=== PATIENT | male | born 1930 | race Caucasian/White ===

== ENCOUNTER 2016-12-06 06:46 | Day surgery (SDC) | payer MEDICARE, OTHER ==
[2016-11-24 16:17] LABS: BASOPHILS 0.3 %; BASOPHILS ABSOLUTE 0.03 10/3/uL (0.0-0.16); EOSINOPHILS 9.2 %; EOSINOPHILS ABSOLUTE 0.81 10/3/uL (0.0-0.53); HEMATOCRIT 40.3 % (40.0-51.0); HEMOGLOBIN 13.3 g/dL (13.6-17.8); IMMATURE GRANULOCYTES 0.2 %; IMMATURE GRANULOCYTES ABSOLUTE 0.02 10/3/uL (0.0-0.11); LYMPHOCYTES 21.8 %; LYMPHOCYTES ABSOLUTE 1.92 10/3/uL (0.67-4.30); MEAN CORPUSCULAR HEMOGLOB 29.8 pg (26.0-34.0); MEAN PLATELET VOLUME 9.6 fL (9.2-13.0); MONOCYTES 10.2 %; NEUTROPHILS 58.3 %; NEUTROPHILS ABSOLUTE 5.11 10/3/uL (2.02-8.40); PLATELET COUNT 221 10/3/uL (150-400); RBC DISTRIBUTION WIDTH 13.5 % (12.0-16.0); RED CELL COUNT 4.46 10/6/uL (4.7-6.1); WHITE BLOOD CELLS 8.8 10/3/uL (4.5-10.5)
[2016-11-24 16:19] LABS: MANUAL DIFF NO %; MEAN CORPUSCULAR VOLUME 90.4 fL (80-100)
[2016-11-24 16:32] LABS: CALCIUM, SERUM 8.9 MG/DL (8.5-10.4); CHLORIDE, SERUM 99 MMOL/L (96-112); CO2 (CARBON DIOXIDE) 31 MMOL/L (24-34); CREATININE 0.92 MG/DL (0.70-1.30); GFR AFRICAN AMERICAN 88 ML/MIN (>=60); GFR NON AFRICAN AMERICAN 76 ML/MIN (>=60); GLUCOSE, SERUM 81 MG/DL (60-99); POTASSIUM, SERUM 4.5 MMOL/L (3.5-5.3); SODIUM, SERUM 138 MMOL/L (135-148)
[2016-11-24 16:34] LABS: BUN (BLOOD UREA NITROGEN) 20 MG/DL (6-23)
--- NOTE | ~2016-12-06 | OP ---
Record Of Operation [facility] [address] [place]. [address] NAME: ABRAHAN DOWD : 34 STATUS : [facility]#: [id number] AGE: 86 ADM/REG DATE : 12/06/16 MR#: [id number] REPORT SERV DATE: 12/08/16 DICTATED BY: ASHER MEJIA DATE: 12/08/16 REPORT STATUS : Draft TRANSCRIBED BY: MODL DATE: 12/08/16 DATE OF PROCEDURE: 12/06/2016 ATTENDING: Dr. Mejia. RESIDENT: Dr. Rodrigo Orourke. PREOPERATIVE DIAGNOSIS: Bilateral inguinal hernias. POSTOPERATIVE DIAGNOSIS: Bilateral reducible direct inguinal hernias. OPERATION: Open repair of bilateral reducible direct inguinal hernias with mesh. ESTIMATED BLOOD LOSS: 10 mL. SPECIMEN: None. ANESTHESIA: General and local. BRIEF HISTORY: An 86-year-old male with bilateral inguinal hernias. After risks and benefits of the open procedure were discussed in detail with the patient secondary to his history of prostatectomy, he agreed to proceed with surgery and on the day of surgery, consent was signed. Correct site of surgery was then marked. He was then brought to the operating room and placed in the supine position. DESCRIPTION OF PROCEDURE: After induction of general anesthesia, the patient's abdomen and groin were prepped and draped in a standard fashion using Hibiclens and ChloraPrep. It was started on the right, made an incision between the ASIS and the pubic tubercle, approximately 6 cm long and carried this down through the Earle's fascia to the external oblique aponeurosis with electrocautery. We then incised the external oblique aponeurosis and opened in the direction of its fibers through the external inguinal ring. We elevated external oblique flaps and dissected the cord structures off the flaps and circumferentially at the pubic tubercle. We then placed a [place] drain around the spermatic cord. There was an obvious transversalis defect with a direct hernia sac that adhered to the spermatic cord and we dissected this off with a mix of blunt dissection and electrocautery. We inspected the cord contents. We somewhat opened the cremasteric fibers and did not see an indirect hernia sac. At this point, we selected an inguinal hernia repair system. We trimmed the inner alutiiq down slightly and placed this into the internal ring in the preperitoneal space after reducing the direct hernia sac. We then trimmed the superior portion of the mesh to fit the patient's inguinal canal. We sutured it at the pubic tubercle near the lacunar ligament with a 0 Nurolon suture and inferiorly along the folded edge of the inguinal ligament with interrupted 0 Nurolon sutures and superiorly along the conjoined tendon with 0 interrupted Nurolon sutures. We cut a notch in the mesh and attached this around the cord proximally to recreate the internal inguinal ring. Next we irrigated the wound. We then closed the external oblique aponeurosis to recreate the external inguinal ring with a running 2-0 Vicryl suture. We then irrigated and closed the Earle's fascia and then the Record Of Operation [address] [place]. [address] NAME: ABRAHAN DOWD : 34 STATUS : [facility] PAT#: [id number] AGE: 86 ADM/REG DATE : 12/06/16 MR#: [id number] REPORT SERV DATE: 12/08/16 DICTATED BY: ASHER MEJIA DATE: 12/08/16 REPORT STATUS : Draft TRANSCRIBED BY: KIRSTEN DATE: 12/08/16 skin with 3-0 Vicryl sutures and a running 4-0 Monocryl suture. The findings on the left side were the same. We performed this same exposure and repair of the left side as we did on the right side. Both sides went well. There was minimal blood loss. The testicles were pulled down to the inferior scrotum and covered the incisions with Telfa and Tegaderm. The patient tolerated the procedure well, was extubated and brought to the PACU in stable condition and discharged home. SKY/KIRSTEN Asher Mejia M.D. / [id number] CC: Asher Mejia M.D.
[~2016-12-06 06:46] MED LIST: ADVAIR250 INH; ALLEGRA PO; ALLEGRA180 PO; ALLERGY INJ SQ; BETAPACE80 PO; C25 PO; C5 PO; CENTRUM PO; CO Q-10100 MG PO; CO Q-10200 MG PO; CRESTOR20 MG PO; FLOMAX4 PO; FLONASE NAS; HALF81 PO; HYDROCHLOROT12.5 MG PO; KLONO1 PO; LISINOPRIL40 MG PO; NASONEX NAS; PRIN20 PO; RYTHMOL150 MG PO; SINGULAIR1 PO; TOPXL100 PO; TYLENOL PM PO; VICODIN PO; XYZAL5 MG PO; ZYRTEC ALLGY10 MG PO
[2016-12-06 07:14] LABS: INTERNATIONAL NORMAL RATI 1.4 UNITS (-); PROTIME (NOT ORD) 16.8 SEC (12.0-14.5)
== END 2016-12-06 16:41 | disposition home or self-care (01) ==
LOC: SDC 06:46
PROVIDERS: Specialist
PROC: 0YUA0JZ Supplement Bilateral Inguinal Region with Synthetic Substitute, Open Approach (ICD-10-PCS; principal; 2016-12-06 08:45)
DX: K40.20 Bilateral inguinal hernia, without obstruction or gangrene, not specified as recurrent (principal); I10 Essential (primary) hypertension; J44.9 Chronic obstructive pulmonary disease, unspecified; Z88.1 Allergy status to other antibiotic agents; N40.0 Benign prostatic hyperplasia without lower urinary tract symptoms; I48.91 Unspecified atrial fibrillation; Z79.01 Long term (current) use of anticoagulants; Z79.82 Long term (current) use of aspirin; Z79.51 Long term (current) use of inhaled steroids; Z95.0 Presence of cardiac pacemaker; Z79.899 Other long term (current) drug therapy; Z98.890 Other specified postprocedural states
CPT/HCPCS: 80048; 85025; 85610; 93005; A9270-GY; C1781; J0690; J2250; J2370; J2405; J2710; J3010

== ENCOUNTER 2016-12-10 19:09 | Emergency (ER) | payer MEDICARE, OTHER ==
[2016-12-10 20:49] LABS: WBC (NOT ORDERED) (RFLEX) 0 (0-5)
[2016-12-10 20:54] LABS: ASCORBIC ACID (UR NOT ORDER) NEG (NEG); BILIRUBIN, URINE NEGATIVE (NEG); KETONE, URINE NEGATIVE (NEG); LEUKOCYTE ESTERASE(NOT OR NEG (NEG); NITRITE (URINE) NEG (NEG)
[2016-12-10 22:24] LABS: BASOPHILS 0.1 %; BASOPHILS ABSOLUTE 0.01 10/3/uL (0.0-0.16); EOSINOPHILS 12.3 %; EOSINOPHILS ABSOLUTE 1.13 10/3/uL (0.0-0.53); ER CBC TAT 0 Hrs 05 Mins; HEMATOCRIT 36.4 % (40.0-51.0); HEMOGLOBIN 12.1 g/dL (13.6-17.8); IMMATURE GRANULOCYTES ABSOLUTE 0.09 10/3/uL (0.0-0.11); LYMPHOCYTES 23.8 %; LYMPHOCYTES ABSOLUTE 2.18 10/3/uL (0.67-4.30); MANUAL DIFF NO %; MEAN CORPUS HGB CONC 33.2 g/dL (32.0-36.0); MEAN CORPUSCULAR HEMOGLOB 30.3 pg (26.0-34.0); MEAN CORPUSCULAR VOLUME 91.2 fL (80-100); MEAN PLATELET VOLUME 9.1 fL (9.2-13.0); MONOCYTES 8.3 %; MONOCYTES ABSOLUTE 0.76 10/3/uL (0.21-1.20); NEUTROPHILS 54.5 %; PLATELET COUNT 202 10/3/uL (150-400); RBC DISTRIBUTION WIDTH 13.2 % (12.0-16.0); RED CELL COUNT 3.99 10/6/uL (4.7-6.1); WHITE BLOOD CELLS 9.2 10/3/uL (4.5-10.5)
[2016-12-10 22:36] LABS: BUN (BLOOD UREA NITROGEN) 21 MG/DL (6-23); CALCIUM, SERUM 9.3 MG/DL (8.5-10.4); CHLORIDE, SERUM 98 MMOL/L (96-112); CO2 (CARBON DIOXIDE) 30 MMOL/L (24-34); CREATININE 0.91 MG/DL (0.70-1.30); GFR AFRICAN AMERICAN 89 ML/MIN (>=60); GFR NON AFRICAN AMERICAN 77 ML/MIN (>=60); POTASSIUM, SERUM 4.4 MMOL/L (3.5-5.3); SODIUM, SERUM 136 MMOL/L (135-148)
[2016-12-10 22:39] LABS: GLUCOSE, SERUM 111 MG/DL (60-99)
== END 2016-12-11 00:16 | disposition home or self-care (01) ==
LOC: ER 19:09
PROVIDERS: Emergency Medicine
DX: K91.870 Postprocedural hematoma of a digestive system organ or structure following a digestive system procedure (principal); I10 Essential (primary) hypertension; Z95.1 Presence of aortocoronary bypass graft; Z95.0 Presence of cardiac pacemaker; Z88.1 Allergy status to other antibiotic agents; Z79.82 Long term (current) use of aspirin; Z79.01 Long term (current) use of anticoagulants; Z79.899 Other long term (current) drug therapy
CPT/HCPCS: 80048; 81001; 85025; 99283